=== PATIENT | female | born 1995 | race Asian ===

== ENCOUNTER 2019-07-04 00:10 | Emergency (ER) | payer OTHER | END 2019-07-04 01:46 | disposition left against medical advice (07) | LOC: EDBD → ED 00:10 → EDBD 00:10 → ED 01:46 | DX: Z53.21 Procedure and treatment not carried out due to patient leaving prior to being seen by health care provider (principal); F18.129 Inhalant abuse with intoxication, unspecified | CPT/HCPCS: 99282 ==